=== PATIENT | female | born 1985 | race Caucasian/White ===

== ENCOUNTER 2016-12-29 16:35 | Inpatient (IN) | payer MEDICAID ==
[~2016-12-29] VITALS: Ht 160 cm; Wt 88.5 kg
[2016-12-29] MEDS ORDERED: LACTATED RINGER'S 1,000 ML IV SCH (17:10)
[2016-12-29] MEDS ORDERED: LACT. RINGERS/OXYTOCIN 20UNITS 1,000 ML IV SCH ×2 (17:10→18:54)
[2016-12-29] MEDS ORDERED: DERMOPLAST 60ML BOTTLE TOP PRN (17:15)
[2016-12-29] MEDS ORDERED: METHYLERGONOVINE MALEATE 0.2 MG/ML AMP IM PRN (17:15)
[2016-12-29] MEDS ORDERED: NALBUPHINE HCL 10 MG/1ml INJECTION IV PRN (17:15)
[2016-12-29] MEDS ORDERED: LIDOCAINE 2%HCL (LOCAL ANESTH.) INJ 20ML MDV IJ ONE (17:15)
[2016-12-29] MEDS ORDERED: PHISODERM TOP SOLN 240ML BTL TOP PRN (17:15)
[2016-12-29] MEDS ORDERED: WITCH HAZEL-GLYCERIN PAD TOP PRN (17:15)
[2016-12-29] MEDS ORDERED: LIDOCAINE HCL 2 %PF INJ 10ML AMP IJ ONE (17:30)
[2016-12-29] MEDS ORDERED: ePHEDrine SULFATE 50 MG/ML AMP IV ONE (17:30)
[2016-12-29] MEDS ORDERED: NALOXONE HCL 0.4 MG/ML VIAL IV ONE (17:30)
[2016-12-29] MEDS ORDERED: fentaNYL CITRATE 100 MCG/2 ML VL IV ONE (17:30)
[2016-12-29] MEDS ORDERED: fentaNYL W ROPIVACAINE 150 ML EPI SCH (17:30)
[2016-12-29 18:00] LABS: Basophils # (auto) 0 uL; Basophils % (auto) 0.1 % (0.0-2.0); DEFINITIVE VIEW TRANSMISSION; Eosinophils # (auto) 0.1 uL; Eosinophils % (auto) 0.7 % (0.0-7.0); Hematocrit 37.7 % (36.0-46.0); Hemoglobin 12.4 g/dL (12.2-16.2); Lymphocytes # (auto) 1.6 uL; Mean Corpuscular Hemoglobin 25.1 pg (28.0-32.0); Mean Corpuscular Hgb Conc. 32.8 g/dL (32.0-36.0); Mean Corpuscular Volume 76.6 fL (80.0-100.0); Mean Platelet Volume 10.5 fL (7.4-10.4); Monocytes # (auto) 0.8 uL; Monocytes % (auto) 7.4 % (0.0-12.0); Neutrophils # (auto) 8.2 uL; Neutrophils % (auto) 76.8 % (37.0-80.0); Platelet Count (auto) 237 10^3/uL (140-450); Red Cell Distribution Width 14.9 % (11.6-16.0); White Blood Cell 10.7 10^3/uL (4.4-10.8)
[2016-12-29 18:09] LABS: INR 0.9 (0.9-1.15); Partial Thromboplastin Time 26.4 sec (22.64-33.71); Prothrombin Time 9.8 sec (9.37-12.3)
[2016-12-29 19:14] LABS: Albumin 2.3 g/dL (3.4-5.0); BUN/Creatinine Ratio 19.4; Calcium 8.7 mg/dL (8.5-10.1); Potassium 4.3 mmol/L (3.5-5.1)
[2016-12-29 19:18] LABS: Bilirubin, Total 0.2 mg/dL (0.2-1.0); Total Protein 7.2 g/dL (6.4-8.2)
[2016-12-30 00:30] VITALS: BP 118/76
[2016-12-30] MEDS ORDERED: ACETAMINOPHEN 325 MG TAB PO PRN (00:30)
[2016-12-30 03:30] VITALS: BP 115/69
[2016-12-30] MEDS: IBUPROFEN 600 MG TAB PO PRN ×2 (07:33→13:28)
[2016-12-30 08:00] VITALS: BP 107/64
[2016-12-30 12:04] VITALS: BP 118/80
[2016-12-30 15:49] VITALS: BP 119/80
[2016-12-30 19:30] VITALS: BP 129/89
[2016-12-30] MEDS ORDERED: TETANUS-DIPTH-ACEL PERTUSSIS 0.5ML SYRG IM ONE (23:45)
[2016-12-31] VITALS: BP 123/78
[2016-12-31 03:30] VITALS: BP 136/86
[2016-12-31 08:00] VITALS: BP 105/63
[2016-12-31 12:00] VITALS: BP 110/63
== END 2016-12-31 12:30 | disposition home or self-care (01) | DRG 560 ==
LOC: LDRP 16:35 → OBSVTOIN 17:05 → LDRP 12-30 13:09 → UNDODISIN 12-31 12:30
PROVIDERS: ADMIT Specialist; ATTEND Specialist
PROC: 10E0XZZ Delivery of Products of Conception, External Approach (ICD-10-PCS; principal; 2016-12-29)
PROC: 10907ZC Drainage of Amniotic Fluid, Therapeutic from Products of Conception, Via Natural or Artificial Opening (ICD-10-PCS; 2016-12-29)
DX: O62.3 Precipitate labor (principal); Z23 Encounter for immunization; Z37.0 Single live birth; Z3A.39 39 weeks gestation of pregnancy
CPT/HCPCS: 36415; 59025; 59409; 80053; 81002; 85025; 85610; 85730; 86850; 86900; 86901; 90472; 90715; 96365; 96366; 96374; G0378; J2590